=== PATIENT | female | born 1965 | race African-American/Black ===

== ENCOUNTER → 2016-08-28 | Outpatient (CLI) | payer OTHER | LOC: MRI 07:59 | DX: H92.01 Otalgia, right ear (principal); G45.9 Transient cerebral ischemic attack, unspecified ==

== ENCOUNTER → 2016-09-12 | Outpatient (CLI) | payer OTHER | LOC: CAT 07:16 | DX: H93.11 Tinnitus, right ear (principal) ==

== ENCOUNTER → 2017-05-24 | Outpatient (CLI) | payer OTHER | LOC: RAD 09:35 | DX: Z12.31 Encounter for screening mammogram for malignant neoplasm of breast (principal) ==

== ENCOUNTER → 2018-06-06 | Outpatient (CLI) | payer OTHER | LOC: BC 08:13 | DX: Z12.31 Encounter for screening mammogram for malignant neoplasm of breast (principal) ==

== ENCOUNTER → 2018-11-07 | Outpatient (CLI) | payer OTHER | LOC: RAD 15:10 | DX: M77.31 Calcaneal spur, right foot (principal) ==

== ENCOUNTER 2019-04-29 09:08 | Emergency (ER) | payer OTHER ==
[~2019-04-29] VITALS: Ht 165.1 cm; Wt 117.9 kg
[2019-04-29] MEDS ORDERED: LOSARTAN-HCTZ1 EACH PO (09:14)
[2019-04-29] MEDS ORDERED: NABUMETONE 500500 M2 PO (09:14)
[2019-04-29] MEDS ORDERED: LO-DOSE ASPIRIN81 M1 PO (09:14)
[2019-04-29 11:44] VITALS: BP 143/74
== END 2019-04-29 11:45 | disposition home or self-care (01) ==
LOC: ER 09:08
DX: M79.604 Pain in right leg (principal)

== ENCOUNTER → 2019-05-01 | Outpatient (CLI) | payer OTHER ==
[~2019-05-01] MED LIST: LO-DOSE ASPIRIN81 M1 PO; LOSARTAN-HCTZ1 EACH PO; NABUMETONE 500500 M2 PO
== END ==
LOC: CAT 09:51
DX: Z13.6 Encounter for screening for cardiovascular disorders (principal); E78.00 Pure hypercholesterolemia, unspecified; I25.10 Atherosclerotic heart disease of native coronary artery without angina pectoris

== ENCOUNTER → 2020-01-18 | Outpatient (CLI) | payer OTHER ==
[2020-01-18 09:04] LABS: ABSOLUTE NEUTROPHILS 1.4 thou/uL (1.4-8.2); BASOPHILS 0.6 % (0.0-2.0); EOSINOPHILS 0.6 % (0.0-3.0); HEMATOCRIT 38.2 % (37.0-47.0); HEMOGLOBIN 12.4 gm/dL (12.0-15.0); LYMPHOCYTES 42.5 % (24.0-44.0); MCH 27.8 pg (26.0-34.0); MCHC 32.5 g/dL (28.0-37.0); MCV 85.7 fL (80.0-100.0); MONOCYTES 11.6 % (1.0-8.0); PLATELET COUNT 149 thou/uL (150-400); POLYS 44.7 % (36.0-66.0); RBC 4.46 mil/uL (4.20-5.00); RDW 15.3 % (10.5-14.5)
[2020-01-18 09:30] LABS: ALBUMIN 3.5 g/dL (3.4-5.0); CALCIUM 8.9 mg/dL (8.5-10.1); CREATININE 1.2 mg/dL (0.6-1.0); POTASSIUM 4.4 mmol/L (3.5-5.1); TOTAL BILIRUBIN 0.4 mg/dL (0.2-1.0); TOTAL PROTEIN 7.7 g/dL (6.4-8.2)
== END ==
LOC: LAB 06:08
PROVIDERS: ATTEND Nurse Practitioner
DX: E78.5 Hyperlipidemia, unspecified (principal); M79.10 Myalgia, unspecified site; I10 Essential (primary) hypertension

== ENCOUNTER → 2020-01-18 | Outpatient (CLI) | payer OTHER | LOC: SJCVCIMAG 10:11 | PROVIDERS: ATTEND Internal Medicine Cardiovascular Disease | DX: I10 Essential (primary) hypertension (principal); R00.0 Tachycardia, unspecified; E78.5 Hyperlipidemia, unspecified; E66.9 Obesity, unspecified; Z82.49 Family history of ischemic heart disease and other diseases of the circulatory system ==

== ENCOUNTER → 2020-01-20 | Outpatient (CLI) | payer OTHER | LOC: LAB 07:39 | PROVIDERS: ATTEND Nurse Practitioner | DX: U07.1 COVID-19 (principal) ==

== ENCOUNTER → 2020-02-29 | Outpatient (CLI) | payer OTHER | LOC: BC 12:45 → RAD 12:45 | PROVIDERS: ATTEND Nurse Practitioner | DX: Z12.31 Encounter for screening mammogram for malignant neoplasm of breast (principal); U07.1 COVID-19; J84.10 Pulmonary fibrosis, unspecified ==

== ENCOUNTER → 2020-09-05 | Outpatient (CLI) | payer OTHER ==
[2020-09-05 09:17] LABS: ABSOLUTE NEUTROPHILS 1.5 thou/uL (1.4-8.2); BASOPHILS 0.4 % (0.0-2.0); EOSINOPHILS 2.2 % (0.0-3.0); HEMATOCRIT 36.9 % (37.0-47.0); LYMPHOCYTES 43.4 % (24.0-44.0); MCH 27.8 pg (26.0-34.0); MCHC 32.5 g/dL (28.0-37.0); MCV 85.5 fL (80.0-100.0); MONOCYTES 9.8 % (1.0-8.0); PLATELET COUNT 163 thou/uL (150-400); POLYS 44.2 % (36.0-66.0); RBC 4.31 mil/uL (4.20-5.00); RDW 14.9 % (10.5-14.5); WBC 3.5 thou/uL (4.0-11.0)
[2020-09-05 09:40] LABS: ALBUMIN 3.6 g/dL (3.4-5.0); CALCIUM 9.5 mg/dL (8.5-10.1); CREATININE 1.1 mg/dL (0.6-1.0); TOTAL BILIRUBIN 0.5 mg/dL (0.2-1.0); TOTAL PROTEIN 8.1 g/dL (6.4-8.2)
[2020-09-05 22:06] LABS: GLYCOHEMOGLOBIN (HGB A1C) 5.6 % (4.8-5.6)
== END ==
LOC: LAB 06:15
PROVIDERS: ATTEND Nurse Practitioner
DX: I10 Essential (primary) hypertension (principal); Z83.3 Family history of diabetes mellitus

== ENCOUNTER → 2020-09-21 | Outpatient (CLI) | payer OTHER ==
[2020-09-21 09:34] LABS: CHOLESTEROL 223 mg/dL (<200); HDL CHOLESTEROL 55 mg/dL (>40); LDL CHOLESTEROL 154 mg/dL (<100); TC:HDL 4.1 Ratio (Not establshd); TRIGLYCERIDE 70 mg/dL (<150); VLDL 14 mg/dL (<40)
== END ==
LOC: LAB 08:28
PROVIDERS: ATTEND Internal Medicine Cardiovascular Disease
DX: E78.2 Mixed hyperlipidemia (principal); E55.9 Vitamin D deficiency, unspecified; R53.83 Other fatigue

== ENCOUNTER → 2020-11-29 | Outpatient (CLI) | payer OTHER ==
[2020-11-29 09:45] LABS: ABSOLUTE NEUTROPHILS 1.9 thou/uL (1.4-8.2); BASOPHILS 0.6 % (0.0-2.0); EOSINOPHILS 2.9 % (0.0-3.0); HEMOGLOBIN 11.8 gm/dL (12.0-15.0); LYMPHOCYTES 39.5 % (24.0-44.0); MCH 27.6 pg (26.0-34.0); MCHC 31.9 g/dL (28.0-37.0); MCV 86.7 fL (80.0-100.0); MONOCYTES 7.2 % (1.0-8.0); PLATELET COUNT 144 thou/uL (150-400); POLYS 49.8 % (36.0-66.0); RBC 4.27 mil/uL (4.20-5.00); RDW 14.5 % (10.5-14.5); WBC 3.9 thou/uL (4.0-11.0)
[2020-11-29 10:03] LABS: ALBUMIN 3.4 g/dL (3.4-5.0); CALCIUM 8.8 mg/dL (8.5-10.1); POTASSIUM 3.9 mmol/L (3.5-5.1); TOTAL BILIRUBIN 0.4 mg/dL (0.2-1.0); TOTAL PROTEIN 7.5 g/dL (6.4-8.2)
== END ==
LOC: RAD 06:33
PROVIDERS: ATTEND Nurse Practitioner
DX: M47.816 Spondylosis without myelopathy or radiculopathy, lumbar region (principal)

== ENCOUNTER → 2021-04-14 | Outpatient (CLI) | payer OTHER ==
[~2021-04-14] VITALS: Ht 165.1 cm; Wt 113.4 kg
[~2021-04-14] MED LIST changes: +APPLE CIDER VI300 MG PO; +BLACK ELDERBER1 EACH PO; +ROSUVASTATIN CA10 MG PO; +VITAMIN D325 MC3 PO; +[UNRECOGNIZED DRUG - OTHER] PO
--- NOTE | ~2021-04-14 | P ---
[facility] [place] [address] PROCEDURE REPORT Name: NANETTE MATHEWS Room #: REG ESTHELA Brigid.#: [id number] Admission: 04/14/21 Attend Phys: Anastacio Zavala Discharge: Date of : 65 Report #: [id number] THIS REPORT FOR: cc: Kyra Morales Beth RNP McElhinney, Christian C. MD ~ cc: EFFIE Power DATE OF SERVICE: 04/14/2021 PROCEDURE PERFORMED: Colonoscopy with biopsies. HISTORY OF PRESENT ILLNESS: The patient is a 56-year-old female who presents today for routine screening colonoscopy. She denies any symptoms, no family history of colon cancer, no previous history of colonoscopy. DESCRIPTION OF PROCEDURE: The risks and benefits of the procedure were explained to the patient, those risks including but not limited to bleeding, perforation and the risk of sedation. She understood these risks and gave informed consent. Sedation was given using propofol per Anesthesia. Next, a digital rectal exam was initially performed, which was normal. Next, using a standard Olympus colonoscope, the scope was placed in the patient's anus and advanced under direct vision to the cecum. The overall prep was excellent. The cecum and ileocecal valve were normal in appearance. The ascending, transverse colon were normal. In the descending colon, a 4 mm sessile polyp was noted. This was removed with cold forceps. In the sigmoid colon, a 5 mm sessile polyp was also noted and removed with cold forceps. In the rectum, two 3 mm sessile polyps were noted and removed with cold forceps. On retroflexion, no abnormalities were noted. The scope was then withdrawn and the procedure terminated. The patient tolerated the procedure well. IMPRESSION: 1. Four small colonic polyps. 2. Otherwise, normal colonoscopy. RECOMMENDATIONS: 1. Await biopsy results. 2. Repeat colonoscopy in 5 years. Thank you for allowing me to participate in her care. By: [id number] Anastacio Joe MD /nt
--- NOTE | 2021-04-17 14:07 | PATH ---
[facility] [place] [address] PATHOLOGY RPT PROCEDURE Name: SHY MATHEWS Fatemeh Room #: REG [facility] Brigid.#: [id number] Admission: 04/14/21 Date of : 65 Discharge: Report #: [id number] Path Case #: [id number] [facility] Accession Number: [id number] . 01 Material submitted: . PART A: colon - DESCENDING COLON POLYP. Modifiers: descending PART B: sigmoid colon - SIGMOID COLON POLYP PART C: rectum - RECTAL POLYP X2 . 01 Clinical history: . COLON CANCER SCREENING POLYPS . 02 Diagnosis: A. Descending colon polyp, polypectomy: - Sessile serrated polyp. - Negative for high grade dysplasia or malignancy. . B. Sigmoid colon polyp, polypectomy: - Tubular adenoma. - Negative for high grade dysplasia or malignancy. . C. Rectal polyps x 2, endoscopic polypectomy: - Hyperplastic polyps x 2. - Negative for high grade dysplasia or malignancy. (NORA/db; 04/17/2021) LBQ 04/17/2021 1021 Local . 02 Electronically signed: . Neisha Dueñas MD, Pathologist NPI- [id number] . 01 Gross description: . A. The specimen is received in formalin, labeled "Shy Mathews, descending colon polyp". Received are 2 segments of pale zavaleta tissue ranging in size from 0.2 to 0.3 cm in maximum dimensions. The specimen is submitted entirely in cassette A1. . B. The specimen is received in formalin, labeled "Shy Mathews, sigmoid colon polyp". Received are multiple segments of light zavaleta tissue measuring 0.7 x 0.5 x 0.1 cm in aggregate dimensions. The specimen is filtered and entirely submitted in cassette B1. . C. The specimen is received in formalin, labeled "Shy Mathews, rectal polyp x2". Received are 5 segments of pale zavaleta tissue ranging in size from 0.2 to 0.4 cm in maximum dimensions. The specimen is submitted entirely in cassette C1.([facility]; 04/14/2021) [place] [address] PATHOLOGY RPT PROCEDURE Name: SHY MATHEWS R Room #: REG CLI Brigid.#: [id number] Admission: 04/14/21 Date of : 65 Discharge: Report #: [id number] Path Case #: [id number] [facility] 04/14/2021 1710 Local . 02 Pathologist provided ICD-10: K63.5, D12.5, K62.1 . 02 CPT . 902909, [id number], [id number] Specimen Comment: A courtesy copy of this report has been sent to [phone], [phone] Specimen Comment: [id number] Specimen Comment: Report sent to / DR WHITTEN Specimen Comment: A duplicate report has been generated due to demographic updates. Performed at: [address] [id number] MD Jasvir Alves MD Phone: [phone] Performed at: [address] [id number] MD Neisha Dueñas MD Phone: [phone]
== END | disposition home or self-care (01) ==
LOC: GI 03-17 12:06
PROVIDERS: ATTEND Specialist
DX: Z12.11 Encounter for screening for malignant neoplasm of colon (principal); D12.5 Benign neoplasm of sigmoid colon; K62.1 Rectal polyp; I10 Essential (primary) hypertension; E78.00 Pure hypercholesterolemia, unspecified; Z98.890 Other specified postprocedural states; Z79.899 Other long term (current) drug therapy; Z20.822 Contact with and (suspected) exposure to COVID-19
CPT/HCPCS: 62110; 62900